=== PATIENT | female | born 2000 | race African-American/Black ===

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

== ENCOUNTER 2021-06-16 21:29 | Emergency (ER) | payer OTHER ==
[2021-06-16 21:53] VITALS: BMI 29.7
[2021-06-16] MEDS ORDERED: ALBUTEROL SO4 HFA INHALER IH ONE (23:29)
[2021-06-17] MEDS ORDERED: ALBUTEROL SO4 HFA INHALER IH ONE (00:11)
[2021-06-17 01:23] VITALS: BP 107/65; PULSE 74; TEMP 99
== END 2021-06-17 01:23 | disposition home or self-care (01) ==
LOC: JER 21:29
DX: U07.1 COVID-19 (principal)
CPT/HCPCS: 71046-TC-FY; 99284-25; C9803; U0003; U0005

== ENCOUNTER 2023-02-23 13:40 | Emergency (ER) | payer OTHER ==
[2023-02-23 14:02] VITALS: RESP 18; BMI 38.3
[2023-02-23] MEDS ORDERED: ONDANSETRON 4 MG/2 ML VIAL IVPUSH STA (14:32)
[2023-02-23] MEDS ORDERED: SODIUM CHLORIDE 1,000 ML IV STA (14:32)
[2023-02-23] MEDS ORDERED: ACETAMINOPHEN 325 MG TABLET (FP) PO ONE (14:47)
[2023-02-23] MEDS ORDERED: ACETAMINOPHEN INJECTION 100 ML IVPB ONE (15:49)
[2023-02-23] MEDS ORDERED: ONDANSETRON 4 MG/2 ML VIAL ONE (15:51)
[2023-02-23] MEDS ORDERED: ACETAMINOPHEN 325 MG TABLET (FP) ONE (15:51)
[2023-02-23 16:20] LABS: BASO % 0.5 % (0-2.0); EOS % 0.5 % (0-4.5); HEMATOCRIT 33.7 % (32.4-45.2); HEMOGLOBIN 10.9 GM/dL (10.7-15.3); LYMPH % 19.9 % (8-40); MCH 25.3 pg (25.7-33.7); MCHC 32.2 g/dl (32.0-36.0); MEAN CELL VOLUME 78.5 fl (80-96); MONO % 6.4 % (3.8-10.2); NEUT % 72.7 % (42.8-82.8); PLATELET COUNT 313 10^3/uL (134-434); RDW 17.7 % (11.6-15.6); WHITE BLOOD COUNT 14.1 K/mm3 (4.0-10.0)
[2023-02-23 16:27] LABS: CHLORIDE 107 mmol/L (98-107)
[2023-02-23 16:30] LABS: ALBUMIN 2.9 g/dl (3.4-5.0); CALCIUM 8.6 mg/dL (8.5-10.1); CO2 22 mmol/L (21-32); GLUCOSE,RANDOM 93 mg/dL (74-106)
[2023-02-23 16:31] LABS: AMYLASE 60 U/L (25-115); LIPASE 17 U/L (73-393)
[2023-02-23 16:33] LABS: CREATININE 0.7 mg/dL (0.55-1.3)
[2023-02-23 16:34] LABS: BILIRUBIN,TOTAL 0.2 mg/dL (0.2-1)
[2023-02-23 16:34] LABS: EPI CELLS 35 /uL (0-25.1); HYALINE CASTS 1 /uL (0-3.1); URINE APPEARANCE CLEAR; URINE BACTERIA 1164 /uL (0-1359); URINE BILIRUBIN NEGATIVE (NEGATIVE); URINE COLOR YELLOW; URINE GLUCOSE (UA) NEGATIVE (NEGATIVE); URINE KETONE NEGATIVE (NEGATIVE); URINE LEUK ESTERASE 2+ (NEGATIVE); URINE NITRITE NEGATIVE (NEGATIVE); URINE PROTEIN NEGATIVE (NEGATIVE); URINE RBC 7 /uL (0-23.9); URINE WBC 191 /uL (0-25.8)
[2023-02-23 16:35] LABS: TOT PROT 7.3 g/dl (6.4-8.2)
[2023-02-23 17:00] LABS: ALK PHOS 74 U/L (45-117); ANION GAP 5 MMOL/L (8-16); POTASSIUM > 10.0 mmol/L (3.5-5.1); SGOT/AST 86 U/L (15-37); SGPT/ALT 17 U/L (13-61); SODIUM 134 mmol/L (136-145)
[2023-02-23 20:03] LABS: CHLORIDE 109 mmol/L (98-107); POTASSIUM 4.8 mmol/L (3.5-5.1); SODIUM 140 mmol/L (136-145)
[2023-02-23 20:05] LABS: ALBUMIN 3.2 g/dl (3.4-5.0); ANION GAP 8 MMOL/L (8-16); CO2 23 mmol/L (21-32); GLUCOSE,RANDOM 84 mg/dL (74-106)
[2023-02-23 20:08] LABS: CREATININE 0.6 mg/dL (0.55-1.3); SGPT/ALT 17 U/L (13-61)
[2023-02-23 20:09] LABS: SGOT/AST 15 U/L (15-37)
[2023-02-23 20:10] LABS: BILIRUBIN,TOTAL < 0.1 mg/dL (0.2-1); TOT PROT 6.6 g/dl (6.4-8.2)
[2023-02-23 20:11] LABS: ALK PHOS 67 U/L (45-117)
[2023-02-23 20:37] VITALS: BP 119/74; PULSE 88; TEMP 98.3
== END 2023-02-23 20:44 | disposition home or self-care (01) ==
LOC: JER 13:40
PROC: 3E033GC Introduction of Other Therapeutic Substance into Peripheral Vein, Percutaneous Approach (ICD-10-PCS; principal; 2023-02-23)
PROC: 3E0337Z Introduction of Electrolytic and Water Balance Substance into Peripheral Vein, Percutaneous Approach (ICD-10-PCS; 2023-02-23)
DX: O26.891 Other specified pregnancy related conditions, first trimester (principal); R10.10 Upper abdominal pain, unspecified; O21.9 Vomiting of pregnancy, unspecified; R63.0 Anorexia; Z3A.10 10 weeks gestation of pregnancy
CPT/HCPCS: 36415; 76705-TC; 76815-TC; 80053; 81003; 82150; 83690; 84702; 85025; 99284-25

== ENCOUNTER 2023-08-11 05:50 | Inpatient (IN) | payer OTHER ==
[2023-08-11] MEDS ORDERED: CITRIC ACID/SODIUM CITRATE 30 ML UNIT-DOSE CUP PO ONE (06:00)
[2023-08-11] MEDS ORDERED: ELECTROLYTE-148 SOLN 500 ML IV SCH ×2 (06:00→06:30)
[2023-08-11 06:29] VITALS: BMI 41.3
[2023-08-11] MEDS ORDERED: ONDANSETRON 4 MG/2 ML VIAL IVPUSH PRN (07:59)
[2023-08-11] MEDS ORDERED: PHENYLEPHRINE HCL 10 MG/1 ML SINGLE DOSE VIAL ONE (08:09)
[2023-08-11] MEDS ORDERED: morphine SULFATE/PF 1 MG/2 ML (2cc Syringe - QUVA) ONE (08:09)
[2023-08-11] MEDS ORDERED: OXYTOCIN 10 UNITS/ML VIAL ONE ×2 (08:11)
[2023-08-11] MEDS ORDERED: ceFAZolin SODIUM 1 GM VIAL ONE ×2 (08:11)
[2023-08-11] MEDS ORDERED: ELECTROLYTE-148 SOLN 1,000 ML IV SCH (08:30)
[2023-08-11] MEDS ORDERED: ePHEDrine SULFATE 50 MG/1 ML AMPULE ONE (08:49)
[2023-08-11] MEDS ORDERED: WITCH HAZEL 50% (TUCKS) 40 PAD/JAR PAD TP PRN (09:26)
[2023-08-11] MEDS ORDERED: ACETAMINOPHEN 325 MG TABLET (FP) PO PRN (09:26)
[2023-08-11] MEDS ORDERED: METHYLERGONOVINE MALEATE 0.2 MG/1 ML AMP IM PRN (09:26)
[2023-08-11] MEDS: OXYTOCIN 20 UNITS in 0.9% NS 20 UNIT/1,000 ML INFUS.BAG IV SCH ×2 (09:35→11:30)
[2023-08-11] MEDS ORDERED: OXYTOCIN 20 UNITS in 0.9% NS 20 UNIT/1,000 ML INFUS.BAG IV ONE (11:05)
[2023-08-11] MEDS ORDERED: IBUPROFEN 800 MG/8 ML IJ IVPB ONE (11:16)
[2023-08-11] MEDS: IBUPROFEN 800 MG/8 ML IJ IVPB PRN ×2 (11:30→21:52)
[2023-08-11] MEDS: PRENATAL VITAMINS W/ FOLIC ACID TABLET (FP) PO SCH (11:36)
[2023-08-11] MEDS: FERROUS SO4 325 MG TABLET (FP) PO SCH ×2 (14:11→21:10)
[2023-08-11] MEDS ORDERED: oxyCODONE HCL 5 MG TABLET PO PRN (21:26)
[2023-08-11] MEDS: SIMETHICONE 80 MG TAB.CHEW (FP) PO PRN (21:53)
[2023-08-12] MEDS: IBUPROFEN 600 MG TABLET (FP) PO PRN ×3 (05:48→21:59)
[2023-08-12] MEDS: SIMETHICONE 80 MG TAB.CHEW (FP) PO PRN ×3 (05:48→21:59)
[2023-08-12 08:19] LABS: HEMATOCRIT 26.3 % (32.4-45.2); HEMOGLOBIN 8.3 GM/dL (10.7-15.3); MCH 23.1 pg (25.7-33.7); MCHC 31.7 g/dl (32.0-36.0); MEAN PLT VOLUME 7.8 fl (7.5-11.1); PLATELET COUNT 268 10^3/uL (134-434); RDW 21.2 % (11.6-15.6); WHITE BLOOD COUNT 20.5 K/mm3 (4.0-10.0)
[2023-08-12 09:25] VITALS: RESP 18
[2023-08-12 09:26] LABS: ANISOCYTOSIS 2+; MACROCYTOSIS 0; OVALOCYTE 1+; TARGET CELLS 1+
[2023-08-12] MEDS ORDERED: BISACODYL 10 MG SUPP.RECT RC PRN (09:26)
[2023-08-12] MEDS: FERROUS SO4 325 MG TABLET (FP) PO SCH ×2 (09:56→21:59)
[2023-08-12] MEDS: PRENATAL VITAMINS W/ FOLIC ACID TABLET (FP) PO SCH (09:56)
[2023-08-13] MEDS: IBUPROFEN 600 MG TABLET (FP) PO PRN (09:20)
[2023-08-13] MEDS: FERROUS SO4 325 MG TABLET (FP) PO SCH ×2 (09:20→21:05)
[2023-08-13] MEDS: PRENATAL VITAMINS W/ FOLIC ACID TABLET (FP) PO SCH (09:20)
[2023-08-13] MEDS: SIMETHICONE 80 MG TAB.CHEW (FP) PO PRN (21:05)
[2023-08-14] MEDS: SIMETHICONE 80 MG TAB.CHEW (FP) PO PRN ×2 (02:41→09:17)
[2023-08-14] MEDS: IBUPROFEN 600 MG TABLET (FP) PO PRN ×2 (02:41→09:17)
[2023-08-14 07:45] LABS: BASO % 0.5 % (0-2.0); EOS % 3.1 % (0-4.5); HEMATOCRIT 23.7 % (32.4-45.2); HEMOGLOBIN 7.5 GM/dL (10.7-15.3); LYMPH % 21.2 % (8-40); MCH 23.6 pg (25.7-33.7); MCHC 31.5 g/dl (32.0-36.0); MEAN PLT VOLUME 7.7 fl (7.5-11.1); MONO % 6.8 % (3.8-10.2); NEUT % 68.4 % (42.8-82.8); PLATELET COUNT 317 10^3/uL (134-434); RBC 3.17 M/mm3 (3.60-5.2); RDW 22.4 % (11.6-15.6); WHITE BLOOD COUNT 11.5 K/mm3 (4.0-10.0)
[2023-08-14 09:09] VITALS: BP 113/65; PULSE 78; TEMP 98
[2023-08-14] MEDS: PRENATAL VITAMINS W/ FOLIC ACID TABLET (FP) PO SCH (09:17)
[2023-08-14] MEDS: FERROUS SO4 325 MG TABLET (FP) PO SCH (09:18)
[2023-08-14 10:23] LABS: ANISOCYTOSIS 3+; MACROCYTOSIS 0; OVALOCYTE 2+; ROULEAU 1+
== END 2023-08-14 12:50 | disposition home or self-care (01) | DRG 540 ==
LOC: JLDR 05:50 → J3W 11:50
PROVIDERS: ADMIT Obstetrics & Gynecology; ATTEND Obstetrics & Gynecology
PROC: 10D00Z1 Extraction of Products of Conception, Low, Open Approach (ICD-10-PCS; principal; 2023-08-11)
PROC: 30233N1 Transfusion of Nonautologous Red Blood Cells into Peripheral Vein, Percutaneous Approach (ICD-10-PCS; 2023-08-11)
DX: O34.211 Maternal care for low transverse scar from previous cesarean delivery (principal); O99.02 Anemia complicating childbirth; D64.9 Anemia, unspecified; O24.429 Gestational diabetes mellitus in childbirth, unspecified control; Z3A.39 39 weeks gestation of pregnancy; Z37.0 Single live birth
CPT/HCPCS: 36415; 36430; 80053; 82962; 85025; 85610; 85730; 86780; 86850; 86900; 86901; 86922; 88307-TC; 94010; P9038; P9058